=== PATIENT | male | born 1940 | race Two or more races ===

== ENCOUNTER 2017-04-20 13:22 | Outpatient (CLI) | payer MEDICARE, MEDICAID ==
[2017-04-20] MEDS ORDERED: DEXILANT60 MG ORAL (14:08)
[2017-04-20] MEDS ORDERED: MAGNESIUM30 M1 PO (14:08)
[2017-04-20] MEDS ORDERED: OMEGA 3 1,0001 EACH PO (14:08)
[2017-04-20] MEDS ORDERED: CRESTOR10 M2 ORAL (14:08)
[2017-04-20] MEDS ORDERED: SUPER B COMPLE150 MG PO (14:08)
[2017-04-20] MEDS ORDERED: MULTI VITAMIN1 EACH ORAL (14:08)
[2017-04-20] MEDS ORDERED: TRAZODONE HCL50 MG ORAL (14:08)
[2017-04-20] MEDS ORDERED: TOVIAZ4 MG PO (14:09)
[2017-04-20] MEDS ORDERED: BYSTOLIC10 MG ORAL (14:09)
[2017-04-20] MEDS ORDERED: TAMSULOSIN HCL0.4 MG ORAL (14:09)
--- NOTE | 2017-04-20 14:12 | GI Initial Consult Note ---
Kandi Pleitezh Navjot N.PBroderick 04/20/17 1412: History of Present Illness General Date patient seen: Apr 20, 2017 Time patient seen: 14:02 Referring physician: NEEMA Reason for Consultation: EUS Present Illness HPI 76 year old male patient referred by Dr. Greer for diagnostic EUS of periampullary lesion. Hx of panniculitis. EGD/colonoscopy in 2012. Presents today with no GI symptoms. Denies any unintentional weight loss or changes in dietary habits. No signs of abuse or neglect. Patient is not fall risk. Home Meds Reported Medications Nebivolol Hcl (BYSTOLIC*) 10 Mg Tablet, 10 MG ORAL DAILY, TAB 04/20/17 Tamsulosin Hcl (TAMSULOSIN HCL*) 0.4 Mg Cap.er.24h, 0.4 MG ORAL BEDTIME, CAP 04/20/17 Fesoterodine Fumarate (TOVIAZ) 4 Mg Tab.er.24h, 4 MG PO, TAB 04/20/17 [place]-3 Fatty Acids/Fish Oil (OMEGA 3 1,000 MG SOFTGEL) 1 Each Capsule, 1 EACH PO, CAP 04/20/17 Vitamin B Complex & Vit C No.4 (SUPER B COMPLEX) 150 Mg Tablet, 150 MG PO, TAB 04/20/17 Multivitamin (MULTI VITAMIN DAILY) 1 Each Tablet, 1 TAB ORAL DAILY, #30 TAB 0 Refills 04/20/17 Magnesium (MAGNESIUM) Unknown Strength Tablet, PO, TAB 04/20/17 Trazodone Hcl* (DESYREL*) 50 Mg Tablet, 50 MG ORAL BEDTIME, TAB 04/20/17 Rosuvastatin Calcium* (CRESTOR*) Unknown Strength Tablet, ORAL DAILY, TAB 04/20/17 Dexlansoprazole (Dexilant) 60 Mg Abel.bp, 60 MG ORAL DAILY, CAP 04/20/17 Med list reviewed/reconciled: Yes Allergies: Coded Allergies: No Known Allergies (Unverified , 04/20/17) Patient History History Provided By: Patient, Medical Record PMH Narrative HTN GERD BPH Overactive Bladder Depression HLD Past Surgical History: other - cataract surgery Pertinent Family History: none Social History: Denies: smoking, alcohol use, drug use, other Review of Systems All Other Systems: negative except mentioned in HPI Physical Exam T 98.1 BP 105/62 HR 57 98 RA WT 135.2lbs Sp02 EP Interpretation: reviewed, normal General Appearance: well appearing, no apparent distress, alert Head: normocephalic EENT: PERRL/EOMI, normal ENT inspection Neck: supple Respiratory: normal breath sounds, no respiratory distress Cardiovascular: normal rate Gastrointestinal: normal inspection, non tender, soft, normal bowel sounds, non -distended Rectal: deferred Genitourinary: deferred Musculoskeletal: normal inspection, back normal Neurologic: normal inspection, alert, oriented x3, responsive Psychiatric: normal inspection, judgement/insight normal, memory normal Skin: normal inspection, normal color, no rash, warm/dry, palpation normal, well hydrated Lymphatic: normal inspection, no adenopathy GI: Plan Problems: (1) HTN (hypertension) (2) GERD (gastroesophageal reflux disease) (3) BPH (benign prostatic hyperplasia) (4) Overactive bladder (5) Depression (6) HLD (hyperlipidemia) (7) Encounter for diagnostic endoscopy Plan EUS scheduled 04/26/17. - NPO @ [place] day prior procedure explained. procedure and previous endoscopy images reviewed with patient Seen with Dr. Yee. Thank you for this patient referral. ALEJANDRO YEE 04/24/17 0913: History of Present Illness Present Illness Home Meds Reported Medications Nebivolol Hcl (BYSTOLIC*) 10 Mg Tablet, 10 MG ORAL DAILY, TAB 04/20/17 Tamsulosin Hcl (TAMSULOSIN HCL*) 0.4 Mg Cap.er.24h, 0.4 MG ORAL BEDTIME, CAP 04/20/17 Fesoterodine Fumarate (TOVIAZ) 4 Mg Tab.er.24h, 4 MG PO, TAB 04/20/17 [place]-3 Fatty Acids/Fish Oil (OMEGA 3 1,000 MG SOFTGEL) 1 Each Capsule, 1 EACH PO, CAP 04/20/17 Vitamin B Complex & Vit C No.4 (SUPER B COMPLEX) 150 Mg Tablet, 150 MG PO, TAB 04/20/17 Multivitamin (MULTI VITAMIN DAILY) 1 Each Tablet, 1 TAB ORAL DAILY, #30 TAB 0 Refills 04/20/17 Magnesium (MAGNESIUM) Unknown Strength Tablet, PO, TAB 04/20/17 Trazodone Hcl* (DESYREL*) 50 Mg Tablet, 50 MG ORAL BEDTIME, TAB 04/20/17 Rosuvastatin Calcium* (CRESTOR*) Unknown Strength Tablet, ORAL DAILY, TAB 04/20/17 Dexlansoprazole (Dexilant) 60 Mg Cap.bp, 60 MG ORAL DAILY, CAP 04/20/17 Allergies: Coded Allergies: No Known Allergies (Unverified , 04/20/17) GI: Plan Plan The patient was seen and examined at bedside and all new and available data was reviewed in the patients chart. I agree with the above findings, impression and plan. (Patient seen earlier today. Signature stamp does not reflect patient encounter time.). - MD Pricilla Alexander,[facility] Navjot N.PBroderick Apr 20, 2017 14:12 ALEJANDRO YEE Apr 24, 2017 09:13
[2017-04-20 14:23] VITALS: BP 105/52
== END 2017-04-20 13:55 | disposition home or self-care (01) ==
LOC: PAN 13:22
DX: K21.9 Gastro-esophageal reflux disease without esophagitis (principal); N40.0 Benign prostatic hyperplasia without lower urinary tract symptoms; N32.81 Overactive bladder; F32.9 Major depressive disorder, single episode, unspecified; E78.5 Hyperlipidemia, unspecified; I10 Essential (primary) hypertension
CPT/HCPCS: 99201

== ENCOUNTER 2017-04-26 10:15 | Day surgery (SDC) | payer MEDICARE, MEDICAID ==
[~2017-04-26] VITALS: Ht 160 cm; Wt 60.8 kg
[2017-04-26] VITALS (8 sets, daily range): BP systolic 93–105; BP diastolic 45–65
[~2017-04-26 10:15] MED LIST: BYSTOLIC10 MG ORAL; CRESTOR10 M2 ORAL; DEXILANT60 MG ORAL; MAGNESIUM30 M1 PO; MULTI VITAMIN1 EACH ORAL; OMEGA 3 1,0001 EACH PO; SUPER B COMPLE150 MG PO; TAMSULOSIN HCL0.4 MG ORAL; TOVIAZ4 MG PO; TRAZODONE HCL50 MG ORAL
--- NOTE | 2017-04-26 10:51 | Pre-Procedure Note/Attestation ---
Pre-Procedure Note/Attestation Complete Prior to Procedure Planned Procedure: not applicable Procedure Narrative: egd/EUS Indications for Procedure Pre-Operative Diagnosis: duodenal submucosal lesion Attestation I attest that I discussed the nature of the procedure; its benefits; risks and complications; and alternatives (and the risks and benefits of such alternatives ), prior to the procedure, with the patient (or the patient's legal assisted sales representative). I attest that, if there was a reasonable possibility of needing a blood transfusion, the patient (or the patient's legal assisted sales representative) was given the [facility] standardized written summary, pursuant to the [place] Blood Safety Act ([place] Health and Safety Code # 1645, as amended). I attest that I re-evaluated the patient just prior to the surgery and that there has been no change in the patient's H&P, except as documented below: ALEJANDRO YEE Apr 26, 2017 10:51
--- NOTE | 2017-04-26 10:52 | Short Stay Surgery H&P ---
History of Present Illness History of Present Illness Chief Complaint see recent clinic note HPI James Bautista is a 76 year old male who was admitted on for GERD Patient History Allergies: Coded Allergies: No Known Allergies (Unverified , 04/20/17) PAST MEDICAL HISTORY: Past Surgeries: Social History: Medication History Scheduled Dexlansoprazole (Dexilant), 60 MG ORAL DAILY, (Reported) Multivitamin (Multi Vitamin Daily), 1 TAB ORAL DAILY, (Reported) Nebivolol Hcl (Bystolic*), 10 MG ORAL DAILY, (Reported) Rosuvastatin Calcium* (Crestor*), Unknown Dose ORAL DAILY, (Reported) Tamsulosin Hcl (Tamsulosin Hcl*), 0.4 MG ORAL BEDTIME, (Reported) Trazodone Hcl* (Desyrel*), 50 MG ORAL BEDTIME, (Reported) Miscellaneous Medications Fesoterodine Fumarate (Toviaz), 4 MG PO, (Reported) Magnesium (Magnesium), Unknown Dose PO, (Reported) [place]-3 Fatty Acids/Fish Oil ([place] 3 1,000 Mg Softgel), 1 EACH PO, (Reported) Vitamin B Complex & Vit C No.4 (Super B Complex), 150 MG PO, (Reported) Plan Attestation Are the patient's medical conditions optimized for surgery? ALEJANDOR YEE Apr 26, 2017 10:52
[2017-04-26] MEDS ORDERED: Midazolam 2mg/2ml Inj ONE (11:00)
[2017-04-26] MEDS ORDERED: Propofol 200mg/20ml IV ONE (11:00)
[2017-04-26] MEDS ORDERED: Lidocaine 1% MPF 10mg/ml 5ml ONE (11:00)
[2017-04-26 11:20] LABS: BASOPHILS % (AUTO) 0.6 % (0.0-2.0); EOSINOPHILS % (AUTO) 4.2 % (0.0-3.0); HEMATOCRIT 36.4 % (42.0-52.0); HEMOGLOBIN 12.3 G/DL (14.2-18.0); LYMPHOCYTES % (AUTO) 28.9 % (20.0-45.0); MEAN CORPUSCULAR VOLUME 90 FL (80-99); MONOCYTES % (AUTO) 8.4 % (1.0-10.0); NEUTROPHILS % (AUTO) 57.9 % (45.0-75.0); PLATELET COUNT 269 K/UL (150-450); RED BLOOD COUNT 4.06 M/UL (4.70-6.10); RED CELL DISTRIBUTION WIDTH 11.3 % (11.6-14.8); WHITE BLOOD COUNT 6.7 K/UL (4.8-10.8)
--- NOTE | 2017-04-26 11:34 | Endoscopy Procedure Note ---
Endoscopy Procedure Note General Indication for Procedure: duodenal sub mucosal lesion Procedures Performed: EGD, other - EUS Operative Findings/Diagnosis: same Specimen: none Pt Tolerated Procedure Well: Yes Estimated Blood Loss: none Anesthesia Anesthesiologist: evangelina Anesthesia: MAC Inserted Devices Implant(s) used?: No GI Core Measures 50 yrs or older w/o bx or poly: Not Applicable 10yrs. F/U not recommended: Not Applicable ALEJANDRO YEE Apr 26, 2017 11:34
--- NOTE | 2017-04-26 11:41 | Anethesia Preoperative Eval ---
Anesthesia Pre-op PMH/ROS General Date of Evaluation: Apr 26, 2017 Time of Evaluation: 11:20 Anesthesiologist: Anca ASA Score: ASA 3 Mallampati Score Class I : Soft palate, uvula, fauces, pillars visible Class II: Soft palate, uvula, fauces visible Class III: Soft palate, base of uvula visible Class IV: Only hard plate visible Mallampati Classification: Class II Surgeon: Sona Diagnosis: GERD Surgical Procedure: EGD/EUS Anesthesia History: none Family History: no anesthesia problems Allergies: Coded Allergies: No Known Allergies (Unverified , 04/20/17) Medications: see eMAR Past Medical History Cardiovascular: Reports: HTN, other - hyperlipids Gastrointestinal/Genitourinary: Reports: GERD, other - gastritis, colon polyps hx, celiac dx, BPH Neurologic/Psychiatric: Reports: depression/anxiety HEENT: Reports: cataract (L), cataract (R) Musculoskeletal/Integumentary: Reports: OA - low back pain PSxH Narrative: Bilateral cataracts sx Anesthesia Pre-op Phys. Exam Physician Exam Last Vital Signs Date Time Temp Pulse Resp B/P (MAP) Pulse Ox O2 Delivery O2 Flow Rate FiO2 04/26/17 11:04 98.2 58 20 103/64 97 Room Air 98.2 Constitutional: NAD Neurologic: CN 2-12 intact Cardiovascular: RRR Respiratory: CTA Gastrointestinal: S/NT/ND Airway Exam Mallampati Score: Class II MO: full ROM: full Teeth: missing Dentures: upper, lower Anesthesia Pre-op A/P Labs Hematology Test 04/26/17 11:05 White Blood Count 6.7 K/UL (4.8-10.8) Red Blood Count 4.06 M/UL (4.70-6.10) L Hemoglobin 12.3 G/DL (14.2-18.0) L Hematocrit 36.4 % (42.0-52.0) L Mean Corpuscular Volume 90 FL (80-99) Mean Corpuscular Hemoglobin 30.3 PG (27.0-31.0) Mean Corpuscular Hemoglobin Concent 33.8 G/DL (32.0-36.0) Red Cell Distribution Width 11.3 % (11.6-14.8) L Platelet Count 269 K/UL (150-450) Mean Platelet Volume 8.4 FL (6.5-10.1) Neutrophils (%) (Auto) 57.9 % (45.0-75.0) Lymphocytes (%) (Auto) 28.9 % (20.0-45.0) Monocytes (%) (Auto) 8.4 % (1.0-10.0) Eosinophils (%) (Auto) 4.2 % (0.0-3.0) H Basophils (%) (Auto) 0.6 % (0.0-2.0) Coagulation Test 04/26/17 11:05 Prothrombin Time Pending Prothromb Time International Ratio Pending Activated Partial Thromboplast Time Pending Chemistry Test 04/26/17 11:05 Sodium Level Pending Potassium Level Pending Chloride Level Pending Carbon Dioxide Level Pending Blood Urea Nitrogen Pending Creatinine Pending Estimat Glomerular Filtration Rate Pending Glucose Level Pending Calcium Level Pending Total Bilirubin Pending Aspartate Amino Transf (AST/SGOT) Pending Alanine Aminotransferase (ALT/SGPT) Pending Alkaline Phosphatase Pending Total Protein Pending Albumin Pending Globulin Pending Amylase Level Pending Lipase Pending Studies Pre-op Studies: EKG - NSB 59 bpm Risk Assessment & Plan Assessment: A&Ox3 accompanied by daughter Plan: MAC Status Change Before Surgery: No Pre-Antibiotics Given Within 1 Hr of Incision: No - none per surgeon Kellie March CRNA Apr 26, 2017 11:41
--- NOTE | 2017-04-26 11:42 | Immediate Post-Op Evaluation ---
Immediate Post-Op Evalulation Immediate Post-Op Evalulation Procedure: EGD/EUS Date of Evaluation: Apr 26, 2017 Time of Evaluation: 12:06 IV Fluids: NSS 350ml Blood Products: 0 Estimated Blood Loss: 0 Urinary Output: 0 Blood Pressure Systolic: 93 Blood Pressure Diastolic: 58 Pulse Rate: 66 Respiratory Rate: 20 O2 Sat by Pulse Oximetry: 99 Temperature (Fahrenheit): 97 Pain Score (1-10): 0 Nausea: No Vomiting: No Complications none noted Patient Status: awake, reacts, patent Hydration Status: adequate Given Within 1 Hr of Incision: Kellie Lopez CRNA Apr 26, 2017 11:42
--- NOTE | 2017-04-26 11:43 | 48 Hour Post Anesthesia Eval ---
Post Anesthesia Evaluation Procedure: EGD/EUS Date of Evaluation: Apr 26, 2017 Time of Evaluation: 12:20 Blood Pressure Systolic: 97 0: 55 Pulse Rate: 64 Respiratory Rate: 20 Temperature (Fahrenheit): 97.2 O2 Sat by Pulse Oximetry: 99 Airway: patent Nausea: No Vomiting: No Pain Intensity: 0 Hydration Status: adequate Mental Status/LOC: patient returned to baseline Post-Anesthesia Complications: none noted Follow-up care needed: patient intructions given Kellie March CRNA Apr 26, 2017 11:43
[2017-04-26 11:49] LABS: ANION GAP 7 mmol/L (5-15); BLOOD UREA NITROGEN 17 mg/dL (7-18); CALCIUM 8.8 MG/DL (8.5-10.1); CARBON DIOXIDE 29 MMOL/L (21-32); CHLORIDE 103 MMOL/L (98-107); CREATININE 1.1 MG/DL (0.55-1.30); POTASSIUM 4.1 MMOL/L (3.5-5.1); SODIUM 139 MMOL/L (136-145)
[2017-04-26 11:53] LABS: ALANINE AMINOTRANSFERASE 10 U/L (12-78); ALBUMIN/GLOBULIN RATIO 0.8 (1.0-2.7); ALKALINE PHOSPHATASE 50 U/L (46-116); AMYLASE 59 U/L (25-115); ASPARTATE AMINO TRANSFERASE 14 U/L (15-37); BILIRUBIN,TOTAL 0.4 MG/DL (0.2-1.0)
--- NOTE | 2017-04-26 20:15 | Procedure Note ---
DATE OF PROCEDURE: 04/26/2017 SURGEON: Quentin Magallanes M.D. REFERRING PHYSICIAN: Dylon Greer M.D. PROCEDURE: Upper endoscopy and endoscopic ultrasound. INSTRUMENT: Olympus adult flexible endoscope and Olympus EUS radioscope. INDICATION: Duodenal submucosal lesion. The procedure, risks, benefits, and possible consequences, including hemorrhage, aspiration, perforation and infection, and alternative treatments, were explained to the patient/legal guardian by Dr. Quentin Magallanes and the patient/legal guardian understood and accepted these risks. DESCRIPTION OF PROCEDURE: After informed consent was obtained and the patient was adequately sedated, Olympus upper endoscope was advanced through the mouth into the second portion of the duodenum and retroflexion was performed of the stomach. A lesion was seen in the second portion of the duodenum actually close to the third portion. It seems to be submucosal with a lot of white discharges on top. At this time, the upper endoscope was retrieved and EUS scope was introduced. Starting scanning at GE junction, first celiac axis was evaluated and there was no evidence of celiac axis lymphadenopathy. Pancreatic parenchyma was examined in the body and tail. Then, the scope was left in the stomach. There was no evidence of any pancreatitis. No pancreatic duct dilatation. No pancreatic cyst in the body and tail of the pancreas. Then, the scope was advanced to the antrum of the stomach and then peripyloric region. Gallbladder was seen without any gallstones or gallbladder polyp. No gallbladder wall thickening. Then, the scope was advanced to the duodenal bulb and second portion of the duodenum. the lesion of interest was seen. 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 No obvious muscularis propria involvement, so basically confined to the submucosa. At this time, the scope was retrieved and procedure was terminated. SUMMARY OF FINDINGS: 1. About 1.2-cm submucosal lesion in the second portion of duodenum with white discharges on top, highly suspicious for lymphectasia, no evidence of any obvious muscularis propria wall involvement. No fine-needle aspiration was performed given the size and the location of the lesion. 2. No obvious gallstones or gallbladder wall thickening. 3. No pancreatic duct or common bile duct dilatation. RECOMMENDATION: This is most probably a benign lesion, most probably lymphatics. I will recommend to follow up with Dr. Greer, may be another endoscopy in one year. If it looks enlarged at that point, we will consider doing repeat EUS, otherwise we will just do monitoring. I want to thank, Dr. Dylon Greer, for this kind referral. Quentin Rose Marie Magallanes DR: Isis JOB#: [id number] CC: Dylon Greer M.D. MTDD
--- NOTE | 2017-04-30 15:44 | Cardiology Report ---
APPROVED REPORT EKG Measurement Heart [id number] ND [id number] [id number] Sinus bradycardia Otherwise normal ECG
== END 2017-04-26 13:30 | disposition home or self-care (01) ==
LOC: GAS 10:15
DX: K31.9 Disease of stomach and duodenum, unspecified (principal); K21.9 Gastro-esophageal reflux disease without esophagitis; I10 Essential (primary) hypertension; E78.5 Hyperlipidemia, unspecified; Z86.010 Personal history of colon polyps; M19.90 Unspecified osteoarthritis, unspecified site; F32.9 Major depressive disorder, single episode, unspecified; F41.9 Anxiety disorder, unspecified; K90.0 Celiac disease
CPT/HCPCS: 36415; 43259; 80053; 82150; 82378; 83690; 85025; 85610; 85730; 93005; J2250; J2704; 94003; 94150